=== PATIENT | female | born 1945 ===

== ENCOUNTER 2022-12-28 09:31 | Day surgery (SDC) | payer MEDICARE ==
[2022-12-27 14:52] VITALS: BMI 24.2
[2022-12-28 12:21] LABS: Hematocrit 36.9 % (36.0-47.0); Hemoglobin 11.9 g/dL (12.0-16.0)
[2022-12-28 12:39] LABS: Anion Gap 11 mmol/L (10-20); BUN (Urea Nitrogen) 17 mg/dL (9.8-20.1); Calc. Creatinine Clearance 66 mL/min (70-130); Calcium 9.5 mg/dL (7.8-10.44); Carbon Dioxide 30 mmol/L (23-31); Chloride 106 mmol/L (98-107); Estimated GFR 80; Glucose 98 mg/dL (83-110); Potassium 4.9 mmol/L (3.5-5.1); Sodium 142 mmol/L (136-145)
[2022-12-28] MEDS ORDERED: EPINEPHrine 1 MG/ML AMP ONE (12:49)
[2022-12-28] MEDS ORDERED: Bacitracin Zinc Ointment 30 gm TUBE ONE (12:49)
[2022-12-28] MEDS ORDERED: Lidocaine 1% (PF) 30 ML VIAL ONE (12:49)
[2022-12-28] MEDS ORDERED: fentaNYL 50 mcg/mL 1 mL Vial ONE (13:19)
[2022-12-28] MEDS ORDERED: fentaNYL PF 100 MCG/2 ML SYRINGE ONE (13:19)
[2022-12-28] MEDS ORDERED: SUGAMMADEX SODIUM 200 MG/2 ML VIAL ONE (13:22)
[2022-12-28] MEDS ORDERED: Glycopyrrolate 0.2 MG/ML 5 ML SYRINGE ONE (13:37)
[2022-12-28] MEDS ORDERED: Ondansetron PF 4 MG/2 ML Vial ONE (13:37)
[2022-12-28] MEDS ORDERED: ePHEDrine Sulfate 50 MG/10 ML VIAL ONE (13:37)
[2022-12-28] MEDS ORDERED: Lidocaine 1% PF 5 ML VIAL ONE (13:37)
[2022-12-28] MEDS ORDERED: PROPOFOL 200 MG/20 ML VIAL ONE (13:37)
[2022-12-28] MEDS ORDERED: diphenhydrAMINE 50 MG/ML VIAL ONE (13:37)
[2022-12-28] MEDS ORDERED: Dexamethasone 20 MG/5 ML VIAL ONE (13:37)
[2022-12-28] MEDS ORDERED: Rocuronium Bromide 10 MG/ML (10ML VIAL) ONE (13:37)
[2022-12-28] MEDS ORDERED: Ciprofloxacin 0.2% Otic (0.25ML CONTAINER) ONE ×2 (14:46→15:07)
== END 2022-12-28 17:15 | disposition home or self-care (01) ==
LOC: SDC 09:31
PROVIDERS: ATTEND Specialist
PROC: 09U807Z Supplement Left Tympanic Membrane with Autologous Tissue Substitute, Open Approach (ICD-10-PCS; principal; 2022-12-28)
DX: S09.22XA Traumatic rupture of left ear drum, initial encounter (principal); H90.A32 Mixed conductive and sensorineural hearing loss, unilateral, left ear with restricted hearing on the contralateral side; L21.8 Other seborrheic dermatitis; Z90.710 Acquired absence of both cervix and uterus; X58.XXXA Exposure to other specified factors, initial encounter
CPT/HCPCS: 69631; 80048; 85014; 85018; 93005; J3010; 93010; J0171; J1100; J1200; J2001; J2405; J2704